=== PATIENT | female | born 1995 | race African-American/Black ===

== ENCOUNTER 2017-01-30 17:34 | Emergency (ER) | payer BC ==
[~2017-01-30] VITALS: Ht 172.7 cm; Wt 112.9 kg
[~2017-01-30 17:34] MED LIST: IMURAN50 MG PO; MACROBID100 MG PO; NAPROSYN500 MG PO; URSO250 MG PO; ZOFRAN4 MG PO
[2017-01-30 20:35] LABS: CHLORIDE 107 mEq/L (99-109); POTASSIUM 4.3 mEq/L (3.7-5.4); SODIUM 139 mEq/L (136-147)
[2017-01-30 20:37] LABS: GLUCOSE 85 mg/dL (70-99)
[2017-01-30 20:38] LABS: ANION GAP 8 MEQ/L (2-14)
[2017-01-30 20:41] LABS: GFR ESTIMATE (CALCULATED) > 59 mL/min/
[2017-01-30 20:42] LABS: UREA NITROGEN (BUN) 6 mg/dL (9-23)
[2017-01-30] MEDS ORDERED: XARELTO15 MG PO (20:55)
[2017-01-30 21:10] VITALS: BP 141/88
== END 2017-01-30 21:39 | disposition home or self-care (01) ==
LOC: EME 17:34
PROVIDERS: Physician Assistant
DX: I82.441 Acute embolism and thrombosis of right tibial vein (principal); K75.4 Autoimmune hepatitis
CPT/HCPCS: 80048; 93971; 99281; 99284

== ENCOUNTER 2017-02-01 15:52 | Emergency (ER) | payer BC ==
[~2017-02-01] VITALS: Ht 172.7 cm; Wt 111.4 kg
[~2017-02-01 15:52] MED LIST changes: +XARELTO15 MG PO
[2017-02-01 16:25] LABS: HEMATOCRIT 36.5 % (36.0-46.0); MCH 26.9 PG (29.0-34.0); MCHC 33.7 G/DL (30.0-36.0); MCV 79.9 FL (83-99); MEAN PLAT.VOLUME 11.5 uM^3 (9.5-12.4); PLATELET COUNT 269 K/uL (156-360); RBC DIS.WIDTH-CV 14.2 % (11.8-14.6); RBC DIS.WIDTH-SD 41.4 % (39-53); RED BLOOD COUNT 4.57 M/uL (3.80-5.20); WHITE BLOOD COUNT 7.4 K/uL (4.1-10.2)
[2017-02-01 16:33] LABS: CHLORIDE 104 mEq/L (99-109); POTASSIUM 4.2 mEq/L (3.7-5.4); SODIUM 137 mEq/L (136-147)
[2017-02-01 16:35] LABS: GLUCOSE 95 mg/dL (70-99)
[2017-02-01 16:36] LABS: ANION GAP 11 MEQ/L (2-14)
[2017-02-01 16:37] LABS: TOTAL BILIRUBIN 0.7 mg/dL (0.0-1.0)
[2017-02-01 16:39] LABS: ALKALINE PHOSPHATASE 93 IU/L (3-129); GFR ESTIMATE (CALCULATED) > 59 mL/min/
[2017-02-01 16:40] LABS: UREA NITROGEN (BUN) 7 mg/dL (9-23)
[2017-02-01 16:42] LABS: LIPASE 7 U/L (1.0-51.0)
[2017-02-01 16:48] LABS: QUANTITATIVE HCG < 4.0 MIU/ML
[2017-02-01 16:52] LABS: INTER. NORMALIZED RATIO 1.2; PROTHROMBIN TIME 12.2 (9.2-11.2)
[2017-02-01 17:51] LABS: ADD MIUA? YES; BILIRUBIN NEGATIVE; BLOOD LARGE; COLOR YELLOW ((YELLOW)); GLUCOSE (STRIP) NEGATIVE; KETONES 20; LEUKOCYTES NEGATIVE; NITRITE NEGATIVE; PROTEIN (STRIP) 30; SPECIFIC GRAVITY 1.017 (1.000-1.030); UROBILINOGEN 0.2 MG/DL (0.2-1.0)
[2017-02-01 18:03] LABS: BACTERIA RARE /HPF; EPITHELIAL CELLS 1+ /HPF; MUCUS 1+ /LPF; RED BLOOD CELLS TNTC /HPF (0-5); UCUL ADDED? NO; UNCLASSIFIED CASTS 0-5 /LPF; UNCLASSIFIED CRYSTALS 2+ /HPF
[2017-02-01] MEDS ORDERED: PERCOCET 5/31 TABLET PO (20:28)
[2017-02-01 20:51] VITALS: BP 120/66
[2017-02-01 21:18] LABS: HEMATOCRIT 36.1 % (36.0-46.0); MCH 26.7 PG (29.0-34.0); MCHC 33.2 G/DL (30.0-36.0); MCV 80.2 FL (83-99); MEAN PLAT.VOLUME 10.7 uM^3 (9.5-12.4); PLATELET COUNT 266 K/uL (156-360); RBC DIS.WIDTH-CV 14.1 % (11.8-14.6); RBC DIS.WIDTH-SD 41.1 % (39-53); WHITE BLOOD COUNT 8.8 K/uL (4.1-10.2)
[2017-02-02] MEDS ORDERED: ZOFRAN ODT4 MG PO (11:25)
== END 2017-02-01 21:37 | disposition home or self-care (01) ==
LOC: EME 15:52
PROVIDERS: Emergency Medicine
DX: R10.9 Unspecified abdominal pain (principal); R30.0 Dysuria; Z79.01 Long term (current) use of anticoagulants; Z86.718 Personal history of other venous thrombosis and embolism
CPT/HCPCS: 74176; 74177; 80053; 81003; 83690; 84702; 85027; 85610; 93005; 99281; 99285; J2270

== ENCOUNTER 2017-02-02 10:11 | Emergency (ER) | payer BC ==
[~2017-02-02] VITALS: Ht 172.7 cm; Wt 110.4 kg
[~2017-02-02 10:11] MED LIST changes: +PERCOCET 5/31 TABLET PO
[2017-02-02 11:06] LABS: HEMATOCRIT 32.3 % (36.0-46.0); MCH 27.4 PG (29.0-34.0); MCHC 34.1 G/DL (30.0-36.0); MCV 80.5 FL (83-99); MEAN PLAT.VOLUME 10.5 uM^3 (9.5-12.4); PLATELET COUNT 224 K/uL (156-360); RBC DIS.WIDTH-CV 14.2 % (11.8-14.6); RBC DIS.WIDTH-SD 41.4 % (39-53); RED BLOOD COUNT 4.01 M/uL (3.80-5.20); WHITE BLOOD COUNT 6.5 K/uL (4.1-10.2)
[2017-02-02 11:14] LABS: CHLORIDE 104 mEq/L (99-109); POTASSIUM 3.8 mEq/L (3.7-5.4); SODIUM 136 mEq/L (136-147)
[2017-02-02 11:16] LABS: GLUCOSE 99 mg/dL (70-99)
[2017-02-02 11:17] LABS: ANION GAP 8 MEQ/L (2-14)
[2017-02-02 11:20] LABS: ALKALINE PHOSPHATASE 78 IU/L (3-129); GFR ESTIMATE (CALCULATED) > 59 mL/min/
[2017-02-02 11:21] LABS: UREA NITROGEN (BUN) 8 mg/dL (9-23)
[2017-02-02 11:23] LABS: LIPASE 6 U/L (1.0-51.0)
[2017-02-02] MEDS ORDERED: ZOFRAN ODT4 MG PO (11:25)
[2017-02-02 11:29] LABS: QUANTITATIVE HCG < 4.0 MIU/ML
[2017-02-02 11:35] VITALS: BP 121/80
== END 2017-02-02 11:36 | disposition home or self-care (01) ==
LOC: EXP 10:11 → EME 10:11 → EXP 11:36
PROVIDERS: Nurse Practitioner Family
DX: N83.209 Unspecified ovarian cyst, unspecified side (principal); K75.4 Autoimmune hepatitis; Z86.718 Personal history of other venous thrombosis and embolism; Z79.01 Long term (current) use of anticoagulants
CPT/HCPCS: 80053; 83690; 84702; 85027; 93005; 99281; 99284

== ENCOUNTER 2017-06-03 13:41 | Emergency (ER) | payer BC ==
[~2017-06-03] VITALS: Ht 172.7 cm; Wt 111.4 kg
[~2017-06-03 13:41] MED LIST changes: +ZOFRAN ODT4 MG PO
[2017-06-03 14:47] LABS: HEMATOCRIT 30.2 % (36.0-46.0); MCH 23.4 PG (29.0-34.0); MCHC 31.5 G/DL (30.0-36.0); MCV 74.4 FL (83-99); MEAN PLAT.VOLUME 10.6 uM^3 (9.5-12.4); PLATELET COUNT 281 K/uL (156-360); RBC DIS.WIDTH-CV 15.4 % (11.8-14.6); RBC DIS.WIDTH-SD 41.8 % (39-53); RED BLOOD COUNT 4.06 M/uL (3.80-5.20); WHITE BLOOD COUNT 6.4 K/uL (4.1-10.2)
[2017-06-03 14:51] LABS: CHLORIDE 107 mEq/L (99-109); POTASSIUM 4.3 mEq/L (3.7-5.4); SODIUM 138 mEq/L (136-147)
[2017-06-03 14:52] LABS: GLUCOSE 84 mg/dL (70-99)
[2017-06-03 14:54] LABS: ANION GAP 6 MEQ/L (2-14)
[2017-06-03 14:56] LABS: GFR ESTIMATE (CALCULATED) > 59 mL/min/
[2017-06-03 14:57] LABS: UREA NITROGEN (BUN) 9 mg/dL (9-23)
[2017-06-03 15:03] LABS: TROP-I INTERPRETATION NEGATIVE; TROPONIN-I < 0.01 ng/mL (0.0-0.30)
[2017-06-03 15:04] LABS: QUANTITATIVE HCG < 4.0 MIU/ML
[2017-06-03 17:30] LABS: TROP-I INTERPRETATION NEGATIVE; TROPONIN-I < 0.01 ng/mL (0.0-0.30)
[2017-06-03 19:05] VITALS: BP 141/91
== END 2017-06-03 19:07 | disposition home or self-care (01) ==
LOC: EME 13:41
PROVIDERS: Emergency Medicine; Nurse Practitioner Family
DX: R07.9 Chest pain, unspecified (principal); K75.4 Autoimmune hepatitis; Z86.718 Personal history of other venous thrombosis and embolism
CPT/HCPCS: 71020; 71275; 80048; 84484; 84702; 85027; 85379; 93005; 99281; 99284